=== PATIENT | male | born 1995 | race Caucasian/White ===

== ENCOUNTER 2017-04-01 00:43 | Emergency (ER) | payer OTHER ==
[~2017-04-01] VITALS: Ht 188 cm; Wt 96.2 kg
[2017-04-01] MEDS ORDERED: LIDOCAINE 1% INJ 50 ML (XYLOCAINE) VIAL ONE (02:39)
[2017-04-01] MEDS ORDERED: LIDOCAINE 1% INJ 50 ML (XYLOCAINE) VIAL IJ ONE (02:45)
--- NOTE | 2017-04-01 02:45 | ED Upper Extremity ---
General Chief Complaint: Laceration Stated Complaint: LEFT ARM LAC Nursing Triage Note: PT HAS APPROX 1 CM LAC TO TOP OF L WRIST. Nursing Sepsis Screen: No Definite Risk Source: patient, other Exam Limitations: no limitations History of Present Illness Date Seen by Provider: Apr 01, 2017 Time Seen by Provider: 02:41 Initial Comments And actually put a small laceration on the back of his hand. Was not intentional. He is not having any significant blood loss, chest pain, shortness of breath. Allergies and Home Medications Allergies Coded Allergies: No Known Drug Allergies (Unverified , 04/01/17) Constitutional: No chills, No diaphoresis, No malaise Respiratory: No cough, No short of breath Cardiovascular: No chest pain, No palpitations Gastrointestinal: No nausea, No vomiting Past Ainzavj-Yvdvqi-Zalkgf Hx Patient Social History Alcohol Use: Occasionally Uses Recreational Drug Use: No Smoking Status: Never a Smoker 2nd Hand Smoke Exposure: No Recent Foreign Travel: No Contact w/Someone Who Travel: No Recent Infectious Disease Expo: No Recent Hopitalizations: No Immunizations Up To Date Tetanus Booster (TDap): Unknown Seasonal Allergies Seasonal Allergies: No Surgeries History of Surgeries: No Physical Exam Vital Signs Vital Sign - Last 12Hours 04/01/17 01:37 Temp 98.5 Pulse 68 Resp 16 B/P (MAP) 124/84 (97) Pulse Ox 99 O2 Delivery Room Air Capillary Refill : Less Than 3 Seconds General Appearance: WD/WN, no apparent distress HEENT: PERRL/EOMI, pharynx normal Cardiovascular: normal peripheral pulses, regular rate, rhythm Respiratory: no respiratory distress, no accessory muscle use Wrist: Yes pain (dorsum of his left wrist has a 3 cm linear laceration that is not approximated but is hemostatic.) Laceration Repair : Wound Location: Upper Extremities (left wrist dorsum) Wound Length (cm): 3 Wound's Depth, Shape: sub Q Wound Explored: clean Irrigated w/ Saline (ccs): 10 Betadine Prep?: Yes (chlorhexidine soap water) Anesthesia: 1% Lidocaine Volume Anesthetic (ccs): 2 Wound Debrided: minimal Suture: Prolene Suture Size: 5-0 Number of Sutures: 3 Layer Closure?: 1 Progress The wound was infiltrated with 2 cc of 1% lidocaine without epinephrine. Wound was cleaned with chlorhexidine soap water drenched in Betadine and then draped in usual sterile fashion. Using 5-0 Prolene the wound was explored, cleaned and approximated and then stitched closed with 3 interrupted simple sutures. A simple gauze dressing was then placed and the patient was given precautions and sent home. Patient tolerated the procedure well. Progress/Results/Core Measures Results/Orders My Orders Orders - CODY LUCAS Lidocaine 1% (Xylocaine 1%) (04/01/17 02:45) Lidocaine 1% (Xylocaine 1%) (04/01/17 02:39) Dipht,Pertuss(Acell),Tet Adult (Boostrix (04/01/17 03:00) Vital Signs/I&O Vital Sign - Last 12Hours 04/01/17 01:37 Temp 98.5 Pulse 68 Resp 16 B/P (MAP) 124/84 (97) Pulse Ox 99 O2 Delivery Room Air Blood Pressure Mean: 97 Departure Impression Impression: Primary Impression: Laceration Disposition: 01 HOME, SELF-CARE Condition: Stable Departure-Patient Inst. Decision time for Depature: 02:58 Referrals: [facility] (PCP) Primary Care Physician Patient Instructions: Laceration Repair With Stitches (DC) Add. Discharge Instructions: Return to the ER in 7-10 days to have the stitches removed or you may go to your private doctor or [facility] to have it removed whatever is more convenient. He begin to have redness going up your arm, loss of feeling in your hand, nausea, fevers return to the ER or a doctor [facility] for evaluation and management. All discharge instructions reviewed with patient and/or family. Voiced understanding. CODY LUCAS Apr 01, 2017 02:45
[2017-04-01] MEDS ORDERED: TETANUS,DIPTH,PERTUSS P/F (BOOSTRIX) 0.5 ML VIAL IM ONE (03:00)
[2017-04-01 03:05] VITALS: BP 124/84
== END 2017-04-01 03:05 | disposition home or self-care (01) ==
LOC: ER 00:47
DX: S61.512A Laceration without foreign body of left wrist, initial encounter (principal); Z23 Encounter for immunization; X58.XXXA Exposure to other specified factors, initial encounter
CPT/HCPCS: 12001; 90715